=== PATIENT | male | born 1950 | race Caucasian/White ===

== ENCOUNTER 2022-04-13 20:16 | Emergency (ER) | payer MEDICARE, BC ==
[~2022-04-13] VITALS: Ht 185.4 cm; Wt 104.5 kg
[~2022-04-13 20:16] MED LIST: ASPI-83 PO; FINA5TAB11 PO; FLO0.4C PO; LISI20TA28 PO; METO-539 PO; MULT-1085 PO; ROSU20TA2 PO
[2022-04-13 20:55] VITALS: BP 122/83
== END 2022-04-13 21:55 | disposition left against medical advice (07) ==
LOC: ER 20:17
DX: R11.10 Vomiting, unspecified (principal); Z53.21 Procedure and treatment not carried out due to patient leaving prior to being seen by health care provider